=== PATIENT | female | born 1975 | race Asian ===

== ENCOUNTER → 2022-07-31 | Outpatient (CLI) | payer BC ==
[~2022-07-31] MED LIST: FLEXERIL5 MG PO; MULTIPLE VITAMI1 CAP PO; NAPROSYN500 MG PO; SYNTHROID0.05 MG/TA PO; ULTRAM 50MG TAB50 MG PO
== END ==
LOC: MC.RAD 13:58
DX: R92.8 Other abnormal and inconclusive findings on diagnostic imaging of breast (principal)

== ENCOUNTER → 2022-08-06 | Outpatient (CLI) | payer BC | LOC: MC.RAD 07:00 | DX: N63.10 Unspecified lump in the right breast, unspecified quadrant (principal) ==